=== PATIENT | male | born 1955 | race Caucasian/White ===

== ENCOUNTER 2019-12-08 15:12 | Emergency (ER) | payer OTHER, SELFPAY ==
[2019-12-08] VITALS (8 sets, daily range): BP systolic 179–190; BP diastolic 86–120; PULSE 96–115; RESP 19–34; TEMP 36.9; O2SAT 94–98; BMI 29.9
--- NOTE | 2019-12-08 15:15 | DI.RAD.S_ITS ---
PROCEDURE: XR TIBIA FUBULA RT 2V INDICATIONS: trauma TECHNIQUE: 2 views of the tibia and fibula were acquired. COMPARISON: None. FINDINGS: Bones: No fractures or dislocations. No suspicious bony lesions. Mild degenerative arthritis at the right knee. Soft tissues: No suspicious soft tissue calcifications or masses. IMPRESSION: Right knee degenerative arthritis. No evidence acute bony abnormality of the right tibia and fibula. Dictated by: Neville Merida M.D. on 12/08/2019 at 16:01 Approved by: Neville Merida M.D. on 12/08/2019 at 16:02
--- NOTE | 2019-12-08 15:15 | DI.RAD.S_ITS ---
PROCEDURE: XR FOOT RT MIN 3V INDICATIONS: trauma TECHNIQUE: 3 views of the foot were acquired. COMPARISON: None. FINDINGS: Bones: No fractures or dislocations. No suspicious bony lesions. Soft tissues: No tibiotalar joint effusion. Achilles tendon appears normal. IMPRESSION: No evidence acute bony abnormality of the right foot Dictated by: Neville Merida M.D. on 12/08/2019 at 15:55 Approved by: Neville Merida M.D. on 12/08/2019 at 15:56
--- NOTE | 2019-12-08 15:15 | DI.RAD.S_ITS ---
PROCEDURE: XR TIBIA FIBULA RT 2V INDICATIONS: trauma TECHNIQUE: 2 views of the tibia and fibula were acquired. COMPARISON: None. FINDINGS: Bones: No fractures or dislocations. No suspicious bony lesions. Severe degenerative arthritis of the left knee. Remote ACL repair. Soft tissues: No suspicious soft tissue calcifications or masses. IMPRESSION: No evidence acute bony abnormality of the left tibia and fibula. Severe degenerative arthritis at the left knee. Dictated by: Neville Merida M.D. on 12/08/2019 at 16:01 Approved by: Neville Merida M.D. on 12/08/2019 at 16:01
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
[2019-12-08] MEDS: HYDROMORPHONE 0.5 MG INJ IV (16:11)
[2019-12-08] MEDS: TET,DIPH,PERTUSS(ACELL),VAC/PF 0.5 ML SYRINGE IM (16:37)
[2019-12-08] MEDS: OXYCODONE/ACETAMINOPHEN 5/325 TABLET 1 TAB PO (16:52)
[2019-12-08] MEDS: KETOROLAC 60 MG/2 ML VIAL 15 MG IV (16:52)
--- NOTE | 2019-12-08 18:04 | PC.NURSE ---
Pt given a pair of crutches. Proper safety and form demonstrated. Wounds cleaned and dressed. Pt educated on the symptoms and dangers of compartment syndrome and to return to the ER if those symptoms occur
== END 2019-12-08 18:08 | disposition home or self-care (01) ==
PROVIDERS: Emergency Provider Emergency Medicine
DX: S87.82XA Crushing injury of left lower leg, initial encounter (principal); S97.82XA Crushing injury of left foot, initial encounter; S97.81XA Crushing injury of right foot, initial encounter; S87.81XA Crushing injury of right lower leg, initial encounter; V09.9XXA Pedestrian injured in unspecified transport accident, initial encounter; Y92.89 Other specified places as the place of occurrence of the external cause; Y99.0 Civilian activity done for income or pay; Z23 Encounter for immunization
CPT/HCPCS: 73590; 73630; 90471; 96374; 96375; 99284; 90715; J1170; J1885

== ENCOUNTER → 2020-05-25 08:52 | Outpatient (CLI) | payer MEDICARE, SELFPAY ==
[2020-05-25] MEDS: COVID-19 VACC, Ad26(JANSSEN)/PF 0.5 ML IM (09:02)
== END ==
PROVIDERS: Visit Provider Internal Medicine
DX: Z23 Encounter for immunization (principal)
CPT/HCPCS: 0031A; 91303